=== PATIENT | female | born 1965 ===

== ENCOUNTER 2023-03-10 09:50 | Inpatient (IN) | payer OTHER ==
[~2023-03-10] VITALS: Ht 157.5 cm; Wt 104.3 kg
[2023-03-10] MEDS ORDERED: PREDNISONE PO (12:22)
[2023-03-10] MEDS ORDERED: LOZOL PO (12:22)
[2023-03-10] MEDS ORDERED: PLAQUENIL PO (12:23)
[2023-03-10] MEDS ORDERED: XARELTO15 MG PO (12:24)
[2023-03-10] MEDS ORDERED: CELLCEPT500 MG PO (12:24)
[2023-03-10] MEDS ORDERED: LOTREL 10-20 M1 EACH PO (12:25)
[2023-03-10] MEDS ORDERED: CARDURA1 MG PO (12:25)
[2023-03-10] MEDS ORDERED: DULOX PO (12:25)
[2023-03-10] MEDS ORDERED: CARVEDILOL25 M1 PO (12:26)
[2023-03-10] MEDS ORDERED: BENLYSTA200 MG/1 M (12:26)
[2023-03-14] MEDS ORDERED: HYDROXYCHLOROQ200 MG (09:05)
[2023-03-14] MEDS ORDERED: INDAPAMIDE1.25 MG (09:05)
[2023-03-14] MEDS ORDERED: AMLODIPINE-BEN1 EAC5 (09:05)
[2023-03-14] MEDS ORDERED: DULOXETINE HCL20 MG (09:05)
[2023-03-14] MEDS ORDERED: RAYOS5 MG (09:06)
[2023-03-16] MEDS ORDERED: OXYC1TAB9 PO (08:15)
[2023-03-16] MEDS ORDERED: BACTRIM DS TAB1 EACH PO (08:15)
[2023-03-16] MEDS ORDERED: XARELTO15 MG PO (08:15)
[2023-03-16] MEDS ORDERED: INTEGRA PLUS C1 EACH PO (08:15)
== END 2023-03-16 10:33 | disposition home or self-care (01) | DRG 470 ==
LOC: SURH 03-14 06:19 → O/R 03-14 06:19 → SURG 03-14 07:00 → SURH 03-14 10:26
PROVIDERS: ADMIT Orthopaedic Surgery Sports Medicine; ATTEND Orthopaedic Surgery Sports Medicine
PROC: 3E0F7SF Introduction of Other Gas into Respiratory Tract, Via Natural or Artificial Opening (ICD-10-PCS; 2023-03-14)
PROC: 0SRD0J9 Replacement of Left Knee Joint with Synthetic Substitute, Cemented, Open Approach (ICD-10-PCS; principal; 2023-03-14 07:00)
DX: M17.12 Unilateral primary osteoarthritis, left knee (principal); I10 Essential (primary) hypertension